=== PATIENT | male | born 1960 | race Caucasian/White ===

== ENCOUNTER → 2016-07-03 | Day surgery (SDC) | payer BC, OTHER ==
--- NOTE | 2016-07-02 11:43 | TH ---
cc: DAE FIERRO M.D. DATE: 07/02/2016 DATE OF : 1960 PROCEDURE TO BE PERFORMED Body contouring utilizing slim lipo and removal of lipoma located in the right mid flank. HISTORY OF PRESENT ILLNESS This is a healthy otherwise 55-year-old male who presents today for body contouring. The patient does have a history of hypertension which he takes lisinopril ___. The patient had a history of right ankle. ____. REVIEW OF SYSTEMS Otherwise unremarkable. PHYSICAL EXAM CONSTITUTIONAL: General appearance. The patient is a well-developed male in no acute distress. Body habitus is within normal limits. There appear to be no deformities. Appears to have attention to grooming. HEENT: Eyes Conjunctivae and lids are within normal anatomical limits. The pupils are reactive to light and accommodation, size, and symmetry. There is no evidence of exudate, hemorrhage, or vessel change. Ears, mouth, nose, and throat The external inspection of the ears and nose fails to demonstrate any pathology, scars, lesions, or masses. Nasal mucosa, septum, and turbinates appear to be well hydrated as well as the lips and gums. No evidence of masses in the hypopharynx or submental area. RESPIRATORY: The patient shows no evidence of intercostal refractions. Otherwise, lungs are clear to auscultation without any abnormal sounds or rubs. CARDIOVASCULAR: The patient has a normal heart rate and rhythm. There is no evidence of noticed carotid bruits. Femoral pulses and pedal pulses in extremities are also within normal limits. GASTROINTESTINAL/ABDOMEN: Soft with no evidence of masses or tenderness. Unable to palpate the liver or spleen. No evidence of hernia. MUSCULOSKELETAL: Appears to be reasonable range of motion on the head, neck, spine, ribs, pelvis, right upper extremity, left upper extremity, right lower extremity, and left lower extremity. The muscle strength and tone appears to be equal and within accepted limits. SKIN: There is no rashes, lesions, or ulcers on the trunk, back, and extremities. NEUROLOGICAL: Examination is grossly normal. PSYCHIATRIC: The patient appears to have good orientation of time, place, and person. Does not appear to have any mood effects of depression, anxiety, or agitation. Lipodystrophy is noted on the torso and lipoma located on the lateral right flank. PLAN Slim lipoma and removal of lipoma under anesthesia. MD KIMMY Lewis/TAI /11:16 AM /11:20 AM
[~2016-07-03] MED LIST: ACETAMINOPHEN 1000 MG/100 ML VIAL IV ONE; ACETAMINOPHEN/HYDROcodone 325 MG/5 MG TAB ONE; AMOX875T71 PO; BUPIVACAINE/EPINEPHRINE 0.25% PF 30 ML VIAL ONE; CARB100S PO; LACTATED RINGER'S 1000 ML INJ 1,000 ML ONE; LIDOCAINE 1%/EPINEPHrine 1:100,000 SOLN 20 ML VIAL ONE; LIDOCAINE HCL 1% 50 ML VIAL ONE; LISI-363 PO; LORT5TAB PO; MEDR4PAK3 PO; MEPERIDINE HCL 25 MG/ML VIAL ONE; MIDAZOLAM HCL 2 MG/2 ML VIAL ONE; NEOMYCIN/POLYMYXIN/BACITRACIN OINT 15 GM TUBE ONE; ONDANSETRON HCL 4 MG/2 ML VIAL IV PUSH ONE; PROPOFOL 200 MG/20 ML AMP IV ONE; ZOCO40TA PO; ceFAZolin INJ 1,000 MG VIAL ONE
--- NOTE | 2016-07-03 20:01 | TN ---
cc: ANDREA QUINTANILLA M.D. 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 PROCEDURES Liposuction and removal of lipoma. SURGEON Andrea Quintanilla MD ANESTHESIA LMA general. ESTIMATED BLOOD LOSS Minimum. TOTAL Is AND Os About 2000. TOTAL FLUID About 1100. PROCEDURE After proper consent, marked and anesthetized, the skin was sterilized with Betadine solution utilizing a tulip draping system and sterile draping was applied. Attention was directed to this lipomatous mass which was located on the right flank. The patient was turned right side up. About a 3.5 to 4 cm incision was done utilizing a 15-blade, carried down until we find the capsule of this lipoma which is properly resected. It is to mentioned to the patient that this lipoma was extra- and intra-muscular within the external oblique muscle. It was properly excised without any difficulties and sent to pathology for analysis. Multiple layer closure was done in a complex fashion utilizing 2-0 Monocryl suture on the muscle fascia, Byron's fascia, dermis and subcu. The tumescent fluid was applied. I proceeded and performed liposuction on the areas where needed including the upper lower and abdomen, upper back, lower back, flanks. The patient was turned to the left side up, the same procedure was carried out in the usual fashion. With this I proceeded after tumescent to evacuate the another 500 or so cc's of supernatant fat. Puncture wounds were done utilizing an 11-blade and were closed utilizing 4-0 chromic suture and Steri-Strip applied. An abdominal binding was applied thereafter. Overall, the patient tolerated the procedure well. He was awakened and extubated in the operating room and transferred back to the Post Anesthesia Care Unit in stable condition. No complications appreciated and the patient tolerated the procedure fairly well. MD KIMMY Lewis/BLESSING /3:58 PM /7:39 PM CEASAR
== END | disposition home or self-care (01) ==
LOC: ESDC 10:47
PROVIDERS: ATTEND Plastic Surgery
DX: Z41.1 Encounter for cosmetic surgery (principal); D17.1 Benign lipomatous neoplasm of skin and subcutaneous tissue of trunk
CPT/HCPCS: 88304; 88305; J0131; J0690; J2175; J2250; J2405; J3010; J7120